=== PATIENT | female | born 2000 | race Caucasian/White ===

== ENCOUNTER 2023-12-31 19:19 | Emergency (ER) | payer BC ==
[~2023-12-31] VITALS: Ht 162.6 cm; Wt 95.3 kg
[2023-12-31 19:28] VITALS: BP 132/93; PULSE 73; RESP 18; O2SAT 99
[2023-12-31 20:37] VITALS: TEMP 98.2
== END 2023-12-31 20:38 | disposition home or self-care (01) ==
LOC: ER 19:20
DX: S06.0X0A Concussion without loss of consciousness, initial encounter (principal); M54.2 Cervicalgia; Z88.2 Allergy status to sulfonamides; V43.52XA Car driver injured in collision with other type car in traffic accident, initial encounter; Y93.89 Activity, other specified; Y92.89 Other specified places as the place of occurrence of the external cause; Y99.8 Other external cause status
CPT/HCPCS: 99281